=== PATIENT | male | born 1970 | race Two or more races ===

== ENCOUNTER 2022-10-15 19:43 | Emergency (ER) | payer MEDICAID, OTHER ==
[~2022-10-15] VITALS: Ht 175.3 cm; Wt 61.2 kg
[2022-10-15 19:45] VITALS: BP 110/73; TEMP 98.1; O2SAT 98
== END 2022-10-15 20:22 ==
LOC: ER 19:45
DX: S00.11XA Contusion of right eyelid and periocular area, initial encounter (principal); S80.211A Abrasion, right knee, initial encounter; Y08.89XA Assault by other specified means, initial encounter; Y93.89 Activity, other specified; Y92.89 Other specified places as the place of occurrence of the external cause; Y99.8 Other external cause status